=== PATIENT | female | born 1955 | race African-American/Black ===

== ENCOUNTER 2025-08-21 17:16 | Emergency (ER) | payer OTHER ==
[~2025-08-21] VITALS: Ht 172.7 cm; Wt 90.0 kg
[2025-08-21 17:21] VITALS: O2SAT 99
[2025-08-21 18:11] LABS: BASOPHILS % 0.7 % (0.0-2.0); EOSINOPHILS % 0.9 % (0.0-5.0); HEMATOCRIT. 39.1 % (36.0-48.0); HEMOGLOBIN. 13.5 g/dL (12.0-16.0); LYMPHOCYTES % 46.1 % (20.0-50.0); MEAN PLATELET VOLUME 7.7 fl (7.4-10.4); MONOCYTES % 7.4 % (2.0-8.0); NEUTROPHILS % 44.9 % (40.0-76.0); PLATELET 322 x1000/uL (130-400); RED BLOOD CELL COUNT 4.44 mill/uL (4.2-5.4); RED CELL DISTRIBUTION WIDTH 13.8 % (11.6-14.6)
[2025-08-21 18:25] LABS: CREATININE 1.1 mg/dL (0.6-1.0)
[2025-08-21 18:26] LABS: TROPONIN I HIGH SENSITIVITY 5 ng/L (3.0-34); UREA NITROGEN BLOOD 13 mg/dL (9-23)
[2025-08-21 18:27] LABS: ASPARTATE AMINOTRANSFERASE 20 IU/L (<34)
[2025-08-21 18:28] LABS: BILIRUBIN DIRECT < 0.1 mg/dL (<=3.0); BILIRUBIN TOTAL 0.3 mg/dL (0.1-1.0); PROTEIN TOTAL 6.6 g/dL (6.0-8.3)
[2025-08-21 18:31] LABS: INR 1.0
[2025-08-21 20:07] LABS: CLARITY URINE CLEAR (CLEAR); COLOR URINE YELLOW (YELLOW); GLUCOSE URINE NEGATIVE (NEGATIVE); KETONES URINE NEGATIVE (NEGATIVE); LEUKOCYTE ESTERASE URINE NEGATIVE (NEGATIVE); NITRITE URINE NEGATIVE (NEGATIVE); OCCULT BLOOD URINE NEGATIVE (NEGATIVE); PH URINE 6.5 (4.5-8.0); PROTEIN URINE NEGATIVE (NEGATIVE); SPECIFIC GRAVITY URINE 1.019 (1.005-1.030); UROBILINOGEN URINE 0.2 E.U./dL (0.2-1.0)
[2025-08-21] MEDS: ASPIRIN 81MG EC TABLET PO ONE (20:25)
[2025-08-21 20:27] LABS: *AMPHETAMINES SCREEN URINE NEGATIVE (NEGATIVE); *BARBITURATES SCREEN URINE NEGATIVE (NEGATIVE); *BENZODIAZEPINES SCREEN URINE NEGATIVE (NEGATIVE); *COCAINE SCREEN URINE NEGATIVE (NEGATIVE); CANNABINOID URINE SCREEN NEGATIVE (NEGATIVE); ECSTASY MDMA SCREEN URINE NEGATIVE (NEGATIVE); METHADONE URINE SCREEN NEGATIVE (NEGATIVE); OPIATES URINE SCREEN NEGATIVE (NEGATIVE); PHENCYCLIDINE URINE SCREEN NEGATIVE (NEGATIVE)
[2025-08-21] MEDS: IOHEXOL-350 100 ML BOTTLE ONE (21:15)
[2025-08-22 00:08] VITALS: BP 133/74; PULSE 71; RESP 15; TEMP 36.6; O2SAT 99
== END 2025-08-22 00:49 | disposition short-term general hospital (02) ==
LOC: ER 17:16
DX: R47.1 Dysarthria and anarthria (principal); I10 Essential (primary) hypertension; E11.649 Type 2 diabetes mellitus with hypoglycemia without coma; F10.129 Alcohol abuse with intoxication, unspecified; Z79.01 Long term (current) use of anticoagulants; Z86.73 Personal history of transient ischemic attack (TIA), and cerebral infarction without residual deficits; Z79.899 Other long term (current) drug therapy; Y90.9 Presence of alcohol in blood, level not specified
CPT/HCPCS: 80076; 80305; 80048; 81003; 80320; 83690; 83735; 85025; 85610; 85730; 84484; 36415; 71045; 70496; 70498; 70450; 93005 ×2; 99291; Q9967; G0480